=== PATIENT | male | born 1950 | race African-American/Black ===

== ENCOUNTER 2020-05-10 14:57 | Inpatient (IN) | payer OTHER ==
[~2020-05-10 14:57] MED LIST: Iopamidol 370 76% 100 ML VIAL ONE
--- NOTE | 2020-05-10 15:22 | CT ---
CT BRAIN WITHOUT CONTRAST: HISTORY: Left-sided facial droop. COMPARISON: None. FINDINGS: Moderate periventricular white matter microangiopathic changes. No acute hemorrhage. The insular ri bbons are maintained. 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 Posterior fossa is intact. No midline shift. No mass effect. Ovoid infarct of the right caudate he ad. Calvarium is intact. Paranasal sinuses and mastoids are clear. IMPRESSION: Chronic findings. No acute large territorial infarction or hemorrhage. Dr. Mandujano at 3:13 p.m. CODE CR POS: [facility]
[2020-05-10 15:29] LABS: #Eosinphils 0.2 thou/uL (0.0-0.7); #Monocytes 0.7 thou/uL (0.11-0.59); #Neutrophils 5.6 thou/uL (1.40-6.50); %Basophils 0.4 % (0.0-1.0); %Eosinophils 2.4 % (0.0-10.0); %Lymphocytes 23.4 % (21.0-51.0); %Monocytes 8.6 % (0.0-10.0); %Neutrophils 65.3 % (42.0-75.0); Hemoglobin 14.6 g/dL (14.0-18.0); Mean Corpuscular Hemoglobin 30.4 pg (27.0-31.0); Mean Corpuscular Volume 89.4 fL (78.0-98.0); Mean Platelet Volume 7.8 fL (7.4-10.4); Platelet Count 235 thou/uL (130-400); RBC Distribution Width 12.3 % (11.5-14.5); Red Blood Cell (RBC) Count 4.79 mill/uL (4.70-6.10); White Blood Cell (WBC) Count 8.6 thou/uL (4.8-10.8)
[2020-05-10 15:36] LABS: INR-International Normal Ratio 1.1; PTT 34.6 sec (22.9-36.1); Prothrombin Time 14.2 sec (12.0-14.7)
--- NOTE | 2020-05-10 15:40 | CT ---
EXAM: CTA of the chest and abdomen HISTORY: Chest pain and left-sided deficits that have resolved COMPARISON: None TECHNIQUE: Multiple contiguous axial images were obtained a CTA of the chest and abdomen with contras t per aortic dissection protocol. Sagittal and coronal 3-D MIP reformats were performed. FINDINGS: HEART: Normal in size without focal cardiac abnormality. PULMONARY ARTERIES: Normal in caliber without filling defects to suggest pulmonary emboli. MEDIASTINUM: No hilar or mediastinal lymphadenopathy. LUNGS: No focal infiltrates or masses. PLEURAL SPACE: No pleural effusion or pneumothorax. CHEST AND ABDOMINAL WALL SOFT TISSUES: Unremarkable LIVER: Unremarkable. GALLBLADDER: Unremarkable. KIDNEYS: Unremarkable. SPLEEN: Unremarkable. PANCREAS: Unremarkable. BOWEL: Unremarkable. RETROPERITONEUM: No lymphadenopathy BONES: Degenerative changes in the spine. There is fusion of the sacroiliac joints. There are multiple lipomas associated with the left lateral and posterior chest wall musculature. ASCENDING THORACIC AORTA: Normal caliber without evidence of dissection or aneurysmal dilatation. DESCENDING THORACIC AORTA: Normal caliber without evidence of dissection or aneurysmal dilatation. ABDOMINAL AORTA: Normal caliber without evidence of dissection or aneurysmal dilatation. Mild diffuse atherosclerotic disease. CELIAC TRUNK: Patent SMA: Patent KEIRA: Patent RENAL ARTERIES: Bilateral single renal arteries without significant atherosclerotic disease IMPRESSION: No evidence of thoracic or abdominal aortic aneurysm or dissection
--- NOTE | 2020-05-10 15:45 | CT ---
CTA head: Multiple axial tomograms obtained to the head with IV enhancement in the arterial phase. Multiplanar reconstruction and 3-D postprocessing according to angiogram protocol. INDICATIONS:stroke protocol FINDINGS: Intracranial internal carotid arteries appear patent and symmetric. Middle cerebral arteries appear patent and symmetric. M2 and M3 branches appear symmetric. No evidenc e of focal stenosis or occlusion. The right A1 segment is not visualized. Right A2 segment fills via a patent communicating artery. Lef t A1 and A2 segments appear unremarkable. Basilar artery appears patent. No significant stenosis. Posterior cerebral arteries appear patent and symmetric. No focal stenosis or occlusion identified. IMPRESSION: No evidence of proximal cerebral arteries stenosis or occlusion. Absent A1 segment on the right. CTA neck: Multiple axial tomograms obtained through the neck with IV enhancement in arterial phase. Multiplanar reconstruction and 3-D postprocessing according to angiogram protocol. INDICATION: Stroke protocol FINDINGS: No stenosis identified at the origin of the arch vessels. Right common carotid artery appears patent and symmetric. No focal stenosis. Right bulb and right internal carotid artery appear patent. No evidence of stenosis. Left common carotid artery appears patent. No evidence of stenosis. Left internal carotid artery appears patent. No evidence of stenosis identified. Vertebral arteries appear patent and symmetric. No evidence of stenosis. Visualized soft tissues of the neck appear unremarkable. No mass or adenopathy. IMPRESSION: Unremarkable CTA of neck Incidentally noted are severe degenerative changes of cervical spine which produce significant cervic al cord compression. Findings relayed to emergency room physician.
[2020-05-10 15:49] LABS: D-Dimer Test 0.89 *mcg/mL (0.27-0.43)
[2020-05-10 15:59] LABS: ALT (SGPT) 18 U/L (8-55); AST (SGOT) 29 U/L (5-34); Acetaminophen Less than 6.0 mcg/mL (10.0-30.0); Albumin 4.1 g/dL (3.4-4.8); Alcohol Less than 10 mg/dL (Less than 10); Alkaline Phosphatase 66 U/L (40-110); Anion Gap 12 mmol/L (10-20); BUN (Urea Nitrogen) 19 mg/dL (8.4-25.7); Bilirubin, Total 0.4 mg/dL (0.2-1.2); Calc. Creatinine Clearance 0 mL/min (70-130); Carbon Dioxide 25 mmol/L (23-31); Chloride 104 mmol/L (98-107); Estimated GFR-MDRD 67; Globulin 3.5 g/dL (2.4-3.5); Glucose 116 mg/dL (80-115); Potassium 4.1 mmol/L (3.5-5.1); Protein, Total 7.6 g/dL (5.8-8.1); Salicylate Less than 8.0 mg/dL (15.0-30.0); Sodium 137 mmol/L (136-145)
[2020-05-10 16:10] LABS: Amphetamine Not Detected (NotDetected); Benzodiazepine Screen Not Detected (NotDetected); Cocaine Metabolite Screen Not Detected (NotDetected); Medtox Reader # READER 4; Methadone Not Detected (NotDetected); Methamphetamine Not Detected (NotDetected); Opiate Screen Not Detected (NotDetected); Phencyclidine (PCP) Not Detected (NotDetected); THC/Cannabinoid Screen Not Detected (NotDetected); Tricyclic Screen Not Detected (NotDetected)
[2020-05-10 16:11] LABS: Barbiturates Screen Not Detected (NotDetected); Medtox Control Line Valid? VALID (VALID); Oxycodone Screen Not Detected (NotDetected)
[2020-05-10] MEDS ORDERED: Clopidogrel Bisulfate 300 MG TAB ONE (17:41)
[2020-05-10 18:00] LABS: Troponin I Less than 0.010 ng/mL (< 0.028)
[2020-05-10 20:21] LABS: SARS-CoV-2 NAA Rapid Test DETECTED (NotDetected)
--- NOTE | 2020-05-10 20:41 | PDOC.HHP ---
Hospitalist HPI - History of Present Illness per pt: headache/chest pain , however sent for facial weakness History of Present Illness: This is a 69 year old male with past medical history of hypertension, asthma as a child, COVID last month who presented to the ER with chest pain. The patient is a very poor historian. When he woke up this morning he experienced chest pain while laying in bed. He was unable to describe the quality or the severity of the pain. He denied any radiation. He states that he had shortness of breath with the pain as well as a headache. He denied any diaphoresis. He states that his blood pressure was elevated to over 200 and he was given some medicine which resolved his headache, chest pain and SOB. The patient denies chest pain on exertion or shortness of breath on exertion. Patient does not think he has had a stress test in the past. The patient says he does take blood pressure medicine regularly. He denies fevers, but reports feeling cold; however he always feels cold and wears thermals daily. He reports intermittent cough of unknown duration. He was diagnosed with COVID on March 30 last month at the detention. He claims he was never symptomatic from his COVID and after 14 days was moved to a recovery dorm. According to the guard, they believe that a negative test is required to move to the recovery unit, however the patient is not aware of whether his most recent test was negative or positive. Regardless, he says he has been out of isolation and no body has gotten sick. Patient was also noted to have a slightly slurred speech. When asked about this , he states that his speech is always slurred intermittently since he was a child. However according to the charts, this is not his baseline. He denies numbness or tingling in his arms or legs. He denies dysphagia, changes in his vision or hearing. ED Course: Patient presented to the ER with a blood pressure 176/89. Patient was noted to have some slurred speech and some weakness to the left side of his face. He underwent a head CT which was negative. CTA was unremarkable and CT dissection was negative. He was given 1 L of IV fluid. He was also given 300 mg of Plavix due to allergy to aspirin. Hospitalist ROS - Review of Systems Constitutional: reports: chills. denies: fever Eyes: denies: vision change ENT: denies: ear discharge Respiratory: reports: cough (Intermittent), shortness of breath Cardiovascular: reports: chest pain, palpitations. denies: orthopnea, paroxysmal noc. dyspnea Gastrointestinal: denies: nausea, vomiting, abdominal pain, diarrhea Genitourinary: denies: dysuria, frequency Musculoskeletal: denies: neck pain, shoulder pain Skin: denies: rash, lesions Hospitalist History - Past Medical History Cardiac: reports: HTN - Past Surgical History Other Surgical History: Patient reports about surgery He has had a left knee replacement - Family History Other Family History: Denies any family history of stroke - Social History Smoking Status: Former smoker (Patient quit smoking 4 years ago. 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 Patient very ticklish on reflex testing. Musculoskeletal: normal tone, normal strength, no muscle wasting Musculoskeletal - other findings: Severe hallux valgus of both feet bilaterally Psychiatric: normal affect, normal behavior, A&O x 3, oriented to person Psychiatric - other findings: Patient appears to go off in tangents. At times he seems to have poor un Hospitalist Results - Labs Result Diagrams: 05/10/20 15:02 05/10/20 15:02 Lab results: WBC 8.6 thou/uL (4.8-10.8) 05/10/20 15:02 Hgb 14.6 g/dL (14.0-18.0) 05/10/20 15:02 Hct 42.9 % (42.0-52.0) 05/10/20 15:02 MCV 89.4 fL (78.0-98.0) 05/10/20 15:02 Plt Count 235 thou/uL (130-400) 05/10/20 15:02 Neutrophils % 65.3 % (42.0-75.0) 05/10/20 15:02 Sodium 137 mmol/L (136-145) 05/10/20 15:02 Potassium 4.1 mmol/L (3.5-5.1) 05/10/20 15:02 Chloride 104 mmol/L (98-107) 05/10/20 15:02 Carbon Dioxide 25 mmol/L (23-31) 05/10/20 15:02 BUN 19 mg/dL (8.4-25.7) 05/10/20 15:02 Creatinine 1.29 mg/dL (0.7-1.3) 05/10/20 15:02 Glucose 116 mg/dL (80-115) H 05/10/20 15:02 Calcium 9.0 mg/dL (7.8-10.44) 05/10/20 15:02 Total Bilirubin 0.4 mg/dL (0.2-1.2) 05/10/20 15:02 AST 29 U/L (5-34) 05/10/20 15:02 ALT 18 U/L (8-55) 05/10/20 15:02 Alkaline Phosphatase 66 U/L (40-110) 05/10/20 15:02 Creatine Kinase 2794 U/L (30-200) H 05/10/20 17:26 Troponin I Less than 0.010 ng/mL (< 0.028) 05/10/20 17:26 Serum Total Protein 7.6 g/dL (5.8-8.1) 05/10/20 15:02 Albumin 4.1 g/dL (3.4-4.8) 05/10/20 15:02 - EKG Interpretation EKG: Sinus rhythm with first-degree AV block Hospitalist H&P A/P - Plan Plan: CT aortic dissection protocol: No evidence of thoracic or abdominal aortic aneurysm CTA head: No stenosis CT brain: No acute findings This is a 69-year-old male with a past medical history of hypertension who was sent from the detention due to concerns for altered mental status, facial droop and slurred speech. Patient also came to the ER due to chest pain and shortness of breath. Acute encephalopathy/dysarthria -Patient is oriented x3, however noted to not understand questions at times and does not answer questions appropriately at times. He also seems to have a slurred speech which is new per detention guards but not new per patient -CT head, CTA head and neck are unremarkable. I will check an MRI of the brain in the morning - will check UA - Utox negative Chest pain- possibly due to elevated BP - will continue to trend troponin - will keep BP on higher side for now until stroke ruled out, then aim for normotensive BP COVID positive -Currently on room air. Will monitor for any symptoms. - I will check chest Xray due to SOB experienced earlier DVT prophylaxis: deidra Code status: full code
[2020-05-10] MEDS ORDERED: hydrALAZINE 20 MG/ML VIAL SLOW IVP PRN (20:59)
--- NOTE | 2020-05-10 21:19 | RAD ---
XR Chest 1 View Portable HISTORY: Stroke symptoms.Covid Positive COMPARISON: None FINDINGS: The heart size is normal. The lungs are well expanded without focal areas of consolidation, pneumothorax or pleural effusions. IMPRESSION: No radiographic evidence of acute cardiopulmonary process.
[2020-05-10] MEDS ORDERED: Atorvastatin Calcium 40 MG TAB PO SCH (22:00)
[2020-05-10] MEDS ORDERED: Heparin 5,000 UNITS/ML VIAL SC SCH (22:00)
[2020-05-10 22:59] VITALS: BMI 31.8
[2020-05-10 23:09] LABS: Troponin I Less than 0.010 ng/mL (< 0.028)
[2020-05-10 23:24] LABS: Bacteria/HPF None Seen HPF (None Seen); Bilirubin Negative (Negative); Blood, Urine Negative (Negative); Clarity Clear (Clear); Glucose, Urine (Dipstick) Normal (Negative); Ketone, Urine Negative (Negative); Leukocyte Negative Leu/uL (Negative); Nitrite Negative (Negative); Protein, Urine (Dipstick) Negative (Neg-Trace); RBC/HPF 0-3 HPF (0-3); Specific Gravity, Urine 1.046 (1.002-1.036); Squamous Epithelial None Seen HPF (0-3); Urobilinogen Normal mg/dL (Less than 2); WBC/HPF 0-3 HPF (0-3)
[2020-05-10 23:28] LABS: Urine Culture Reflex No No
[2020-05-10] MEDS: Acetaminophen 325 MG TAB PO PRN (23:41)
[2020-05-11] MEDS ORDERED: Albuterol 200 PUFF (6.7GM INHALER) INH PRN (04:34)
[2020-05-11 04:47] LABS: Cardiac Risk 4.7 (Less than 4.5)
[2020-05-11] MEDS ORDERED: Clopidogrel Bisulfate 75 MG TAB PO SCH (09:00)
[2020-05-11] MEDS ORDERED: Prevnar 13-Val Conj/PF 0.5 ML SYRINGE IM ONE (09:00)
[2020-05-11] MEDS: Heparin 5,000 UNITS/ML VIAL SC SCH ×2 (09:09→20:29)
--- NOTE | 2020-05-11 16:00 | MRI ---
MRI BRAIN WITHOUT CONTRAST: INDICATION: Slurred speech. FINDINGS: Exam is severely degraded due to motion artifact. The ventricles have normal size and position. There is evidence of mild chronic ischemic white matte r change. There is no evidence of restricted diffusion identified. No evidence of acute infarct. No evidence of mass. Intracranial internal carotid arteries show flow voids. Cerebral arteries are difficult to assess du e to motion artifact. IMPRESSION: No evidence of acute infarct. POS: [facility]
[2020-05-11] MEDS ORDERED: Amlodipine 10 MG TAB PO SCH (16:15)
--- NOTE | 2020-05-11 18:36 | DIS ---
DATE OF ADMISSION: 05/10/2020 DATE OF DISCHARGE: 05/11/2020 DISCHARGE DIAGNOSES: 1. Acute encephalopathy/dysarthria, possibly secondary to transient ischemic attack. 2. Chest pain, possibly secondary to hypertensive urgency. 3. COVID positive. CONSULTATIONS: None. PROCEDURES: None. BRIEF HISTORY OF PRESENT ILLNESS: This is a 69-year-old male with past medical history of asthma, who presented to the emergency room with chest pain and shortness of breath. He experienced the chest pain while lying in bed. He denied any shortness of breath or diaphoresis. His blood pressure was elevated on arrival (>200) and his symptoms resolved after receiving blood pressure medicine. The patient also had reported feeling cold. The guards also noted that his speech was slightly slurred and thought he has had some facial weakness. He was admitted for a stroke workup. HOSPITAL COURSE: 1. Chest pain/shortness of breath, possibly secondary to mild pericardial effusion: The patient had 3 sets of troponins, which were negative. He was given nitro with an improvement of his blood pressure to 140s. ECHO 05/11 showed a small pericardial effusion and normal EF. He was discharged with Lasix 20 mg daily that he can take for a week and then take as needed if he continues to have fluid retention or chest congestion. He should follow up with his PCP in a week. 2. Dysarthria/acute encephalopathy: According to the skilled nursing guards, he was slightly confused. The patient was oriented x3 upon my assessment, however, he did answer questions tangentially and had poor comprehension. He did have a mild slurred speech; the patient states that this is his baseline. I did not elicit any weakness on exam. He had a CT of his head, which was normal. CT of his head was unremarkable. MRI of his brain showed no stroke. An echo showed no thrombus. His speech seemed a little bit improved at the time of discharge. His UA showed no signs of infection. The patient was in shackles, however, no issues with ambulation were noted. He was discharged with Plavix and statin in case he might have had a TIA. However, I am inclined toward thinking that this is the patient's baseline after speaking to the guards outside his room today. 3. COVID positive: The patient was tested COVID positive. He said he was COVID positive two months ago and was recently in the recovery room, off isolation and no one got sick from him. His chest x-ray showed no pneumonia. DISCHARGE PHYSICAL EXAMINATION: VITAL SIGNS: Temperature 97.9, heart rate 79, respiratory rate 20, O2 saturation 95% on room air, blood pressure of 166/71. GENERAL: The patient is obese. He has very sarcastic sense of humor and makes jokes frequently. His speech at times is difficult to understand, but this is likely his baseline. NEURO: Cranial nerves 2 through 12 are intact. Sensation is intact in all 4 extremities. Strength is 5/5 in all 4 extremities. Range of motion is normal in all 4 extremities. LUNGS: Clear to auscultation bilaterally. ABDOMEN: Positive bowel sounds, soft, nontender, nondistended. EXTREMITIES: No edema. PERTINENT LABORATORY DATA: CBC on 05/10: Normal. BMP on 05/10: Normal. LFTs on 05/10: Normal. CK: was 2953, which improved to 2794. The patient had no signs of rhabdo clinically. Lipid panel: LDL is 90, cholesterol is 141, HDL is 30. UA on 05/10: Negative. U-tox on 05/10: Negative. COVID PCR on 05/10: Positive. IMAGING: CT brain on 05/10: Shows chronic findings. No acute hemorrhage. CTA on 05/10: Shows no stenosis. CT dissection on 05/10: Shows no abdominal aortic or thoracic dissection. Chest x-ray on 05/10: Shows no evidence of disease. MRI of brain on 05/11: Shows no acute infarct. Echo on 05/11: EF 60% to 65%. Small pericardial effusion. DISCHARGE MEDICATIONS: 1. Atorvastatin 40 mg p.o. at bedtime. 2. Plavix 75 mg p.o. daily. 3. Furosemide 20 mg p.o. daily p.r.n. DISCHARGE INSTRUCTIONS: The patient was started on Plavix and statin daily for possible TIA. Consider discontinuing at PCP's discretion. He was noted to have a small pericardial effusion and was discharged on Lasix 20 mg daily p.r.n. His x -ray showed no pleural effusions and no evidence of pneumonia. Please take blood pressure medication daily. Job ID: [id number] [facility]
[2020-05-11 20:07] VITALS: BP 176/86; TEMP 98.4
[2020-05-11] MEDS: Acetaminophen 325 MG TAB PO PRN (20:38)
[2020-05-11] MEDS ORDERED: Atorvastatin Calcium 40 MG TAB PO SCH (21:00)
[2020-05-12] MEDS ORDERED: Amlodipine 10 MG TAB PO SCH (09:00)
--- NOTE | 2020-05-13 14:12 | EKG ---
Test Reason : STAT Blood Pressure : / mmHG Vent. Rate : 074 BPM Atrial Rate : 074 BPM P-R Int : 202 ms QRS Dur : 084 ms QT Int : 390 ms P-R-T Axes : 068 054 046 degrees QTc Int : 432 ms Normal sinus rhythm Low voltage QRS Cannot rule out Anterior infarct (cited on or before 10-MAY-2020) Abnormal ECG Confirmed by FREDA DE LOS SANTOS ([id number]) on 05/13/2020 2:11:57 PM Referred By: janay Confirmed By:FREDA DE LOS SANTOS
== END 2020-05-11 21:25 | disposition home or self-care (01) | DRG 69 ==
LOC: ERS 14:57 → 2SW 17:55 → EEVIPCON 17:55
PROVIDERS: ADMIT Internal Medicine; ATTEND Internal Medicine
DX: G45.9 Transient cerebral ischemic attack, unspecified (principal); U07.1 COVID-19; G93.49 Other encephalopathy; I31.3 Pericardial effusion (noninflammatory); R47.1 Dysarthria and anarthria; I16.0 Hypertensive urgency; R47.81 Slurred speech; R29.810 Facial weakness; I10 Essential (primary) hypertension; Z96.652 Presence of left artificial knee joint; Z87.891 Personal history of nicotine dependence
CPT/HCPCS: 36415; 36416; 70450; 70496; 70498; 70551; 71045; 71275; 72191; 74175; 80053; 80061; 80306; 80307; 81001; 82550; 84484; 85025; 85379; 85384; 85610; 85730; 93005; 93010; 93306; 94760; 96365; J1644; Q9967; U0002